=== PATIENT | male | born 1990 | race Caucasian/White ===

== ENCOUNTER 2019-02-10 16:11 | Emergency (ER) | payer OTHER ==
[2019-02-10] MEDS ORDERED: cefTRIAXone(*) 1 GM in NS 0.9% 50 ML* 50 ML IVPB ONE (17:53)
--- NOTE | 2019-02-10 17:53 | ED ---
Complex/Multi-Sys Presentation - HPI Summary HPI Summary: This patient is a 28 year old M presenting to [facility] accompanied by police officers with a chief complaint of swollen left hand since 11/09/18. Pt denies fevers, chills. Pt reports IV drug abuse. Per triage, The patient rates the pain 0/10 in severity. - History Of Current Complaint Chief Complaint: EDRashSkinAbscess Time Seen by Provider: 02/10/19 17:28 Hx Obtained From: Patient Onset/Duration: Lasting Days - 11/09/18, Still Present Timing: Constant, Days Severity Currently: None Associated Signs And Symptoms: Positive: Other - neg -chills. Negative: Fever - Allergies/Home Medications Allergies/Adverse Reactions: Allergies Allergy/AdvReac Type Severity Reaction Status Date / Time No Known Allergies Allergy Verified 02/10/19 16:20 PMH/Surg Hx/FS Hx/Imm Hx Sensory History: Denies: Hx Legally Blind EENT History: Denies: Hx Deafness Infectious Disease History: No Infectious Disease History: Denies: Traveled Outside the [place] in Last 30 Days - Family History Known Family History: Negative: Hypertension, Diabetes - Social History Alcohol Use: None Hx Substance Use: Yes Substance Use Type: Reports: Heroin Hx Tobacco Use: Yes Smoking Status (MU): Light Every Day Tobacco Smoker Review of Systems Negative: Fever, Chills Positive: Other - pos - swollen hand All Other Systems Reviewed And Are Negative: Yes Physical Exam - Summary Physical Exam Summary: VITAL SIGNS: Reviewed. GENERAL: Patient is a well-developed and nourished male who is lying comfortable in the stretcher. Patient is not in any acute respiratory distress. HEAD AND FACE: No signs of trauma. No ecchymosis, hematomas or skull depressions. No sinus tenderness. EYES: PERRLA, EOMI x 2, No injected conjunctiva, no nystagmus. EARS: Hearing grossly intact. Ear canals and tympanic membranes are within normal limits. MOUTH: Oropharynx within normal limits. NECK: Supple, trachea is midline, no adenopathy, no JVD, no carotid bruit, no c- spine tenderness, neck with full ROM. CHEST: Symmetric, no tenderness at palpation LUNGS: Clear to auscultation bilaterally. No wheezing or crackles. CVS: Regular rate and rhythm, S1 and S2 present, no murmurs or gallops appreciated. ABDOMEN: Soft, non-tender. No signs of distention. No rebound no guarding, and no masses palpated. Bowel sounds are normal. EXTREMITIES: FROM in all major joints, no cyanosis or clubbing. Left hand swelling and erythema especially in mid dorsal and track amanda from IV drug abuse in antecubital. NEURO: Alert and oriented x 3. No acute neurological deficits. Speech is normal and follows commands. SKIN: Dry and warm Triage Information Reviewed: Yes Vital Signs On Initial Exam: Initial Vitals Temp Pulse Resp BP Pulse Ox 98.4 F 78 19 125/78 100 02/10/19 16:16 02/10/19 16:16 02/10/19 16:16 02/10/19 16:16 02/10/19 16:16 Vital Signs Reviewed: Yes Diagnostics - Vital Signs Vital Signs Temp Pulse Resp BP Pulse Ox 02/10/19 16:16 98.4 F 78 19 125/78 100 - Laboratory Result Diagrams: 02/10/19 18:34 02/10/19 18:34 Lab Statement: Any lab studies that have been ordered have been reviewed, and results considered in the medical decision making process. - Radiology Hand X-Ray Radiology Interpretation Completed By: ED Physician Summary of Radiographic Findings: Hand X-Ray reveals, per ED physician, negative for acute fracture or dislocation. Pending offical radiology report Re-Evaluation - Re-Evaluation First Eval Re-Evaluation Time: 19:15 Comment: Discussed results and plan of care with pt. Patient is hemodynamically stable. Complex Multi-Symp Course/Dx Assessment/Plan: This patient is a 28 year old M presenting to [facility] accompanied by police officers with a chief complaint of swollen left hand since 11/09/18. Pt denies fevers, chills. Pt reports IV drug abuse. Per triage, patient rates the pain 0/10 in severity. In the ED course patient was given IVF and Rocephin for a right hand cellulitis. X-ray of the left hand shows no fracture dislocation, no foreign bodies. The blood work is without any significant abnormality, there are no signs of infection, within normal WBCs and normal CRP. However I believe that the patient may be developing a slight cellulitis. Therefore the patient will be discharged back to [facility] with a prescription for Keflex. I discussed the findings and test results with the patient with PCP. Patient is hemodynamically stable. - Diagnoses Provider Diagnoses: Cellulitis Discharge - Sign-Out/Discharge Documenting (check all that apply): Patient Departure - Discharge Patient Received Moderate/Deep Sedation with Procedure: No - Discharge Plan Condition: Stable Disposition: HOME Prescriptions: Cephalexin CAP* [Keflex CAP*] 500 mg PO TID #30 cap Patient Education Materials: Cellulitis (ED) Referrals: Christina TRAN,Franklin Dkue [Primary Care Provider] - 3 Days Additional Instructions: Follow up with your primary care provider within three days RETURN TO THE ED FOR ANY WORSENING OR NEW SYMPTOMS. - Billing Disposition and Condition Condition: STABLE Disposition: Home - Attestation Statements Document Initiated by Ashley: Yes Documenting Scribe: Alexandra Brandon Provider For Whom Ashley is Documenting (Include Credential): Dr. Von Kincaid MD Scribe Attestation: Alexandra Rowe scribed for Dr. Von Kincaid MD on 02/12/19 at 2009. Scribe Documentation Reviewed: Yes Provider Attestation: The documentation as recorded by the Alexandra oneal accurately reflects the service I personally performed and the decisions made by , Dr. Von Kincaid MD Status of Scribe Document: Viewed
[2019-02-10 18:36] LABS: Urine Appearance Clear; Urine Bilirubin Negative (Negative); Urine Blood Negative (Negative); Urine Color Yellow; Urine Glucose Negative (Negative); Urine Ketones Negative (Negative); Urine Nitrite Negative (Negative); Urine Protein Negative (Negative); Urine Specific Gravity 1.016 (1.010-1.030); Urine Urobilinogen Negative (Negative)
[2019-02-10 18:50] LABS: ABS Basophils 0.1 10^3/ul (0-0.2); ABS Eosinophils 0.2 10^3/ul (0-0.6); ABS Lymphocytes 2.3 10^3/ul (1.0-4.8); ABS Monocytes 0.5 10^3/ul (0-0.8); ABS Neutrophils 6.2 10^3/ul (1.5-7.7); Eosinophil % 1.7 %; Hematocrit 43 % (42-52); Hemoglobin 14.7 g/dL (14.0-18.0); Lymphocyte % 24.8 %; Mean Corpuscular HGB Conc 34 g/dL (31-36); Mean Corpuscular Hemoglobin 31 pg (27-31); Mean Corpuscular Volume 90 fL (80-94); Mean Platelet Volume 9.8 fL (7.4-10.4); Nucleated Red Blood Cells % 0.1; Platelet Count 204 10^3/uL (150-450); Red Blood Count 4.79 10^6 /uL (4.18-5.48); Red Cell Distribution Width 14 % (10-15); White Blood Count 9.2 10^3/uL (3.5-10.8)
[2019-02-10 19:04] LABS: Albumin 4.7 g/dL (3.2-5.2); Albumin/Globulin Ratio 1.7 (1-3); BUN/Creatinine Ratio 12.2 (8-20); C Reactive Protein 1.39 mg/L (<8.01); Calcium 9.6 mg/dL (8.6-10.3); EGFR African American 108.7 (>60); EGFR Non-African American 89.8 (>60); Globulin 2.7 g/dL (2-4); Potassium 3.8 mmol/L (3.5-5.0); Total Bilirubin 0.4 mg/dL (0.2-1.0); Total Protein 7.4 g/dL (6.4-8.9)
[2019-02-10 20:40] VITALS: BP 135/71
== END 2019-02-10 20:38 | disposition home or self-care (01) ==
LOC: ED 16:11
DX: L03.114 Cellulitis of left upper limb (principal); F17.210 Nicotine dependence, cigarettes, uncomplicated
CPT/HCPCS: 36415; 80053; 81003; 83605; 85025; 86140; 87040; 96365; 96366; 99283; J0696